=== PATIENT | male | born 1955 | race African-American/Black ===

== ENCOUNTER 2016-11-04 10:00 | Outpatient (RCR) | payer MEDICARE, OTHER ==
[~2016-11-04] VITALS: Ht 33 cm; Wt 0.5 kg
== END 2016-11-21 | disposition home or self-care (01) ==
LOC: PTY 10:00
DX: M79.641 Pain in right hand (principal); M79.642 Pain in left hand; G56.01 Carpal tunnel syndrome, right upper limb
CPT/HCPCS: 97018; 97110; 97140; 97162; G8984; G8985

== ENCOUNTER 2016-11-29 12:45 | Outpatient (RCR) | payer MEDICARE, OTHER | END 2016-12-22 | disposition home or self-care (01) | LOC: PTY 12:45 | DX: M79.641 Pain in right hand (principal); M79.642 Pain in left hand; G56.01 Carpal tunnel syndrome, right upper limb ==

== ENCOUNTER 2016-12-28 09:05 | Outpatient (RCR) | payer MEDICARE, OTHER | END 2017-01-21 | disposition home or self-care (01) | LOC: PTY 09:05 | DX: M79.641 Pain in right hand (principal); M79.642 Pain in left hand; G56.01 Carpal tunnel syndrome, right upper limb | CPT/HCPCS: 97018; 97110; 97140; G8984; G8985 ==

== ENCOUNTER 2017-01-24 13:00 | Outpatient (RCR) | payer MEDICARE, OTHER | END 2017-02-21 | disposition home or self-care (01) | LOC: PTY 13:00 | DX: M79.642 Pain in left hand (principal); M79.641 Pain in right hand; G56.01 Carpal tunnel syndrome, right upper limb | CPT/HCPCS: 97110; 97140; G8985; G8986 ==